=== PATIENT | female | born 1990 | race Caucasian/White ===

== ENCOUNTER 2018-03-06 23:45 | Inpatient (IN) | payer MEDICAID ==
[2018-03-07] MEDS ORDERED: AL HYDROX/MG HYDROX/SIMETH 30 ML CUP PO (01:00)
[2018-03-07] MEDS: LACTATED RINGER'S 1,000 ML IV ×3 (02:00→23:13)
[2018-03-07] MEDS: MAGNESIUM SULFATE 4 GM/100 ML 100 ML IV (02:26)
[2018-03-07 02:27] LABS: ADD MAN DIFF? NO
[2018-03-07 02:31] LABS: BASOPHIL # 0.1 10^3/ul (0.0-0.1); BASOPHILS % 0.5 % (0.0-2.0); EOSINOPHILS # 0.4 10^3/ul (0.0-0.5); EOSINOPHILS % 3.9 % (0.0-7.0); HEMATOCRIT 34.7 % (37.0-47.0); LYMPHOCYTES # 2.3 10^3/ul (0.8-2.9); LYMPHOCYTES % 21.9 % (15.0-51.0); MEAN CORPUSCULAR HEMOGLOBIN 31.8 pg (29.0-33.0); MEAN CORPUSCULAR HGB CONC 34.6 g/dl (32.0-37.0); MEAN PLATELET VOLUME 10.8 fl (7.4-10.4); MONOCYTE # 0.6 10^3/ul (0.3-0.9); MONOCYTES % 6.2 % (0.0-11.0); NEUTROPHIL # 6.9 10^3/ul (1.6-7.5); PLATELET COUNT 161 10^3/UL (140-415); RED BLOOD COUNT 3.77 10^6/ul (4.20-5.40); RED CELL DISTRIBUTION WIDTH 13.1 % (11.5-14.5)
[2018-03-07 02:31] LABS: WHITE BLOOD COUNT 10.3 10^3/ul (4.8-10.8)
[2018-03-07] MEDS: BETAMET NA PHOS/AC(6 MG/ML) 5ML INJ IM (02:45)
[2018-03-07] MEDS: ACETAMINOPHEN 325 MG TAB PO (02:49)
[2018-03-07 02:50] LABS: ALANINE AMINOTRANSFERASE 19 IU/L (13-69); ALBUMIN 3.7 g/dl (3.3-4.9); ALBUMIN/GLOBULIN RATIO 1.05; ALKALINE PHOSPHATASE 106 IU/L (42-121); ANION GAP 13 (8-16); ASPARTATE AMINO TRANSFERASE 16 IU/L (15-46); BILIRUBIN,INDIRECT 0.2 mg/dl (0-1.1); BILIRUBIN,TOTAL 0.2 mg/dl (0.2-1.3); BLOOD UREA NITROGEN 8 mg/dl (7-20); CALCIUM 9.3 mg/dl (8.4-10.2); CARBON DIOXIDE 25 mmol/L (21-31); CHLORIDE 107 mmol/L (97-110); CREATININE 0.44 mg/dl (0.44-1.00); GLUCOSE 87 mg/dl (70-220); INR 0.94; POTASSIUM 3.6 mmol/L (3.5-5.1); PROTIME 12.7 Sec (11.9-14.9); SODIUM 141 mmol/L (135-144); TOTAL PROTEIN 7.2 g/dl (6.1-8.1); URIC ACID 4.1 mg/dl (3.1-7.9)
[2018-03-07 02:51] LABS: PARTIAL THROMBOPLASTIN TIME 28.6 Sec (25.0-35.0)
[2018-03-07] MEDS: MAGNESIUM SULFATE 20 GM/500 ML 500 ML IV (02:58)
[2018-03-07 04:21] LABS: ADD UMIC NO; UR ASCORBIC ACID NEGATIVE (NEGATIVE); UR BILIRUBIN (Dip) NEGATIVE (NEGATIVE); UR BLOOD (Dip) NEGATIVE (NEGATIVE); UR CLARITY CLEAR (CLEAR); UR COLOR COLORLESS (YELLOW); UR GLUCOSE (Dip) NEGATIVE (NEGATIVE); UR KETONES (Dip) NEGATIVE (NEGATIVE); UR LEUKOCYTE ESTERASE (Dip) NEGATIVE Leu/ul (NEGATIVE); UR NITRITE (Dip) NEGATIVE (NEGATIVE); UR SPECIFIC GRAVITY (Dip) 1.002 (1.003-1.030); UR TOTAL PROTEIN (Dip) NEGATIVE (NEGATIVE); UR UROBILINOGEN (Dip) NEGATIVE (NEGATIVE)
[2018-03-07] MEDS ORDERED: METHYLERGONOVINE 0.2 MG INJ (07:00)
[2018-03-07] MEDS ORDERED: CEFAZOLIN 2 GM/50 ML (PMX) 50 ML IV (07:30)
[2018-03-07 07:42] LABS: MAGNESIUM 4.5 mg/dl (1.7-2.5)
[2018-03-07] MEDS ORDERED: CITRIC ACID/SODIUM CITRATE 15 ML CUP (08:34)
[2018-03-07] MEDS: CITRIC ACID/SODIUM CITRATE 15 ML CUP PO (08:56)
[2018-03-07] MEDS ORDERED: morphine SULFATE/PF (10 MG/10 ML) INJ (09:20)
[2018-03-07] MEDS ORDERED: BUPIVACAINE 0.75%/DEXT (SPINAL) 2 ML INJ (09:21)
[2018-03-07] MEDS ORDERED: morphine 2 MG INJ IV ×3 (12:30)
[2018-03-07] MEDS ORDERED: ONDANSETRON 4 MG INJ IV ×2 (12:30)
[2018-03-07] MEDS ORDERED: NALOXONE (0.4 MG/ML) INJ IV (12:30)
[2018-03-07] MEDS ORDERED: morphine (1 MG/ML) 10ML SYRINGE IV ×2 (12:30)
[2018-03-07] MEDS: morphine (1 MG/ML) 10ML SYRINGE IV (12:34)
[2018-03-07] MEDS ORDERED: MISOPROSTOL 200 MCG TAB PR (15:30)
[2018-03-07] MEDS ORDERED: METHYLERGONOVINE 0.2 MG INJ IM (15:30)
[2018-03-07] MEDS ORDERED: CARBOPROST 250 MCG INJ IM (15:30)
[2018-03-07] MEDS ORDERED: OXYTOCIN 30 UNITS/LR 500 ML IV ×3 (15:30→22:25)
[2018-03-07] MEDS ORDERED: NACL 0.9% 3 ML SYG IV (15:30)
[2018-03-07] MEDS: OXYTOCIN 30 UNITS/LR 500 ML IV (15:57)
[2018-03-07 16:37] LABS: HEPATITIS B SURFACE ANTIGEN NEGATIVE (NEGATIVE)
[2018-03-07 17:15] LABS: RAPID PLASMA REAGIN NONREACTIVE (NR)
[2018-03-07 18:59] LABS: MAGNESIUM 2.9 mg/dl (1.7-2.5)
[2018-03-07] MEDS ORDERED: ONDANSETRON 4 MG INJ (22:25)
[2018-03-07] MEDS ORDERED: PHENYLephrine (100 MCG/ML) 5ML SYG (22:25)
[2018-03-07] MEDS ORDERED: METOCLOPRAMIDE 10 MG INJ (22:25)
[2018-03-07] MEDS ORDERED: KETOROLAC 30 MG INJ (22:25)
[2018-03-07] MEDS ORDERED: FENTAnyl 50 MCG/ML VIAL (22:25)
[2018-03-08] MEDS: DIPHENHYDRAMINE 50 MG INJ IV (01:12)
[2018-03-08] MEDS: LACTATED RINGER'S 1,000 ML IV ×2 (07:13→15:13)
[2018-03-08] MEDS: KETOROLAC 30 MG INJ IV (09:12)
[2018-03-08] MEDS: HYDROCODONE/APAP (5/325) TAB PO ×2 (11:56→16:29)
[2018-03-08] MEDS: IBUPROFEN 800 MG TAB PO ×2 (14:00→21:23)
[2018-03-08] MEDS: LANOLIN 7 GM TUBE TOP (16:29)
[2018-03-09] MEDS: HYDROCODONE/APAP (5/325) TAB PO ×2 (01:34→11:50)
[2018-03-09] MEDS: IBUPROFEN 800 MG TAB PO ×3 (05:40→18:13)
[2018-03-09 11:11] LABS: ADD MAN DIFF? NO
[2018-03-09 11:16] LABS: BASOPHILS % 0.3 % (0.0-2.0); EOSINOPHILS # 0.2 10^3/ul (0.0-0.5); EOSINOPHILS % 1.7 % (0.0-7.0); HEMATOCRIT 29.6 % (37.0-47.0); HEMOGLOBIN 9.9 g/dl (12.0-16.0); LYMPHOCYTES # 1.8 10^3/ul (0.8-2.9); LYMPHOCYTES % 19.8 % (15.0-51.0); MEAN CORPUSCULAR HGB CONC 33.4 g/dl (32.0-37.0); MEAN CORPUSCULAR VOLUME 95.8 fl (82.0-101.0); MEAN PLATELET VOLUME 10.6 fl (7.4-10.4); MONOCYTE # 0.6 10^3/ul (0.3-0.9); MONOCYTES % 6.4 % (0.0-11.0); NEUTROPHIL # 6.3 10^3/ul (1.6-7.5); NEUTROPHILS % 71.2 % (39.0-77.0); PLATELET COUNT 169 10^3/UL (140-415); RED BLOOD COUNT 3.09 10^6/ul (4.20-5.40); RED CELL DISTRIBUTION WIDTH 13.5 % (11.5-14.5)
[2018-03-09 11:16] LABS: WHITE BLOOD COUNT 8.9 10^3/ul (4.8-10.8)
[2018-03-09] MEDS: NA PHOSPHATE/BIPHOS 133 ML ENEMA PR (18:13)
[2018-03-10] MEDS: HYDROCODONE/APAP (5/325) TAB PO (02:20)
[2018-03-10] MEDS: IBUPROFEN 800 MG TAB PO ×2 (06:00→14:00)
[2018-03-10] MEDS: MEASLES,MUMPS,RUBELLA VACCINE INJ SC* (09:00)
[2018-03-10] MEDS: DIPHTH/TET/ACEL PERTUSS (ADULT) 0.5 ML VIAL IM* (12:40)
== END 2018-03-10 16:44 | disposition home or self-care (01) | DRG 765 ==
LOC: OBT 23:45 → L-D 23:45 → PP1 03-07 15:44
PROC: 10D00Z1 Extraction of Products of Conception, Low, Open Approach (ICD-10-PCS; principal; 2018-03-07)
PROC: 0UB70ZZ Excision of Bilateral Fallopian Tubes, Open Approach (ICD-10-PCS; 2018-03-07)
PROC: 4A1HXCZ Monitoring of Products of Conception, Cardiac Rate, External Approach (ICD-10-PCS; 2018-03-07)
PROC: 3E0234Z Introduction of Serum, Toxoid and Vaccine into Muscle, Percutaneous Approach (ICD-10-PCS; 2018-03-10)
DX: O34.219 Maternal care for unspecified type scar from previous cesarean delivery (principal); O60.14X0 Preterm labor third trimester with preterm delivery third trimester, not applicable or unspecified; O90.81 Anemia of the puerperium; Z3A.35 35 weeks gestation of pregnancy; Z37.0 Single live birth; Z23 Encounter for immunization; Z30.2 Encounter for sterilization
CPT/HCPCS: 76815; 76818; 80053; 81003; 83735; 84560; 85025; 85610; 85730; 86592; 86850; 86900; 86901; 86920; 87340; 88302; 99464